=== PATIENT | female | born 1985 | race Caucasian/White ===

== ENCOUNTER 2025-04-27 09:52 | Inpatient (IN) | payer MEDICARE, OTHER ==
[~2025-04-27] VITALS: Ht 172.7 cm; Wt 68.0 kg
[2025-04-30 10:04] VITALS: BP 103/60
[2025-04-30 14:12] VITALS: BP 103/60
[2025-04-30] MEDS ORDERED: OXYCODONE/APAP 5-325 MG TABLET PO PRN (22:00)
[2025-04-30] MEDS ORDERED: METO-295 PO (22:51)
[2025-04-30] MEDS ORDERED: GABA100C PO (22:51)
[2025-04-30] MEDS ORDERED: HYDR1LIQ IV (22:51)
[2025-04-30] MEDS ORDERED: MELA10CA PO (22:51)
[2025-04-30] MEDS ORDERED: LAMO25TA16 GT (22:51)
[2025-04-30] MEDS ORDERED: CLON0.5T PO (22:51)
[2025-04-30] MEDS ORDERED: ASCO500C18 PO (22:51)
[2025-04-30] MEDS ORDERED: MIDO10TA PO (22:51)
[2025-04-30] MEDS ORDERED: DULO60CA45 PO (22:51)
[2025-04-30] MEDS ORDERED: DEXT50VI3 IV (22:51)
[2025-04-30] MEDS ORDERED: AMIT50TA17 GT (22:51)
[2025-04-30] MEDS ORDERED: AMIT50TA3 PO (22:51)
[2025-04-30] MEDS ORDERED: SUCR1TAB31 PO (22:51)
[2025-04-30] MEDS ORDERED: DEXT15LI44 PO (22:51)
[2025-04-30] MEDS ORDERED: AMYL1CAP56 PO (22:51)
[2025-04-30] MEDS ORDERED: FAMO20TA8 PO (22:51)
[2025-04-30] MEDS ORDERED: GLUC1VIA4 IM (22:51)
[2025-04-30] MEDS ORDERED: DULO30CA2 GT (22:51)
[2025-04-30] MEDS ORDERED: HYDR-4209 PO (22:51)
[2025-04-30] MEDS ORDERED: GLUCOSE ORAL GEL 15 GM TUBE PO PRN (23:00)
[2025-04-30] MEDS ORDERED: HYDROMORPHONE HCL 2 MG TABLET PO PRN (23:30)
[2025-04-30] MEDS ORDERED: INSULIN ASPART 1000 UNITS/10 ML VIAL(NOVOLOG) SQ SCH (23:30)
[2025-04-30] MEDS ORDERED: INSULIN LISPRO 300 UNIT/3 ML VIAL SQ SCH (23:30)
[2025-04-30] MEDS ORDERED: KETOROLAC TROMETHAMINE 30 MG INJ IM ONE (23:30)
[2025-04-30] MEDS ORDERED: INSULIN GLARGINE,HUM 300 UNITS/3 ML CARTRIDGE SQ SCH (23:30)
[2025-04-30 23:44] VITALS: BP 101/65; TEMP 98.8; O2SAT 97
[2025-05-01] MEDS: HYDROMORPHONE HCL 2 MG TABLET PO PRN (00:12)
[2025-05-01] MEDS: KETOROLAC TROMETHAMINE 30 MG INJ IM ONE (00:15)
[2025-05-01] MEDS: METOCLOPRAMIDE HCL 10 MG TABLET PO PRN (04:44)
[2025-05-01] MEDS ORDERED: DEXTROSE 50% 50 ML DISP.SYRIN IV PRN ×3 (05:00→12:30)
[2025-05-01] MEDS: BLOOD SUGAR DIAGNOSTIC 1 EACH STRIP VI SCH (05:08)
[2025-05-01] MEDS: INSULIN REGULAR, HUMAN 1000 UNIT/10 ML VIAL SQ PRN (05:09)
[2025-05-01 06:00] VITALS: BP 99/58; TEMP 98.7; O2SAT 95
[2025-05-01] MEDS ORDERED: BLOOD SUGAR DIAGNOSTIC 1 EACH STRIP VI SCH (07:30)
[2025-05-01 08:56] VITALS: BP 114/69; TEMP 98.7; O2SAT 97
[2025-05-01] MEDS ORDERED: ACET1TAB23 PO (09:32)
[2025-05-01] MEDS ORDERED: INSU100V11 SQ (10:00)
[2025-05-01] MEDS ORDERED: INSU100V7 SQ (10:01)
[2025-05-01] MEDS ORDERED: LAMO25TA5 PO (10:03)
[2025-05-01] MEDS ORDERED: ABAL1.56 SQ (10:05)
[2025-05-01] MEDS ORDERED: APIX5TAB PO (10:35)
[2025-05-01] MEDS ORDERED: TRAM50TA2 PO (10:38)
[2025-05-01] MEDS ORDERED: GLUCOSE ORAL GEL 15 GM TUBE PO PRN (12:30)
[2025-05-01] MEDS ORDERED: INSULIN ASPART 1000 UNITS/10 ML VIAL(NOVOLOG) SQ PRN (12:30)
[2025-05-01] MEDS ORDERED: ACETAMINOPHEN/CODEINE 300-30 MG TABLET PO PRN (12:30)
[2025-05-01] MEDS ORDERED: GLUCAGON,HUMAN RECOMBINANT 1 MG VIAL IM PRN (12:30)
[2025-05-01] MEDS: LOPERAMIDE HCL 2 MG CAPSULE PO PRN (12:34)
[2025-05-01] MEDS: TRAMADOL HCL 50 MG TABLET PO SCH (13:00)
[2025-05-01] MEDS ORDERED: METOCLOPRAMIDE HCL 10 MG TABLET PO SCH (13:00)
[2025-05-01] MEDS: MIDODRINE HCL 5 MG TABLET PO SCH (13:42)
[2025-05-01] MEDS: GABAPENTIN 100 MG CAPSULE PO SCH (13:43)
[2025-05-01] MEDS: LIPASE/PROTEASE/AMYLASE 4200 UNITS CAPSULE.DR PO SCH (14:15)
[2025-05-01 14:21] LABS: *BILIRUBIN,URIN NEGATIVE (NEGATIVE); *BLOOD, URINE 1+ (NEGATIVE); *CLARITY,URINE CLEAR (CLEAR); *COLOR,URINE YELLOW (YELLOW); *KETONES,URINE NEGATIVE (NEGATIVE); *PROTEIN,URINE NEGATIVE (NEGATIVE); *UROBILINOGEN,URINE 0.2 E.U./dl (NORMAL); LEUKOCYTE ESTERASE ,URINE 2+ (NEGATIVE); NITRITE, URINE NEGATIVE (NEGATIVE); UGLUCOSE TRACE (NEGATIVE)
[2025-05-01 14:23] LABS: *URINE HCG, QUAL NEGATIVE (NEGATIVE); SQUAMOUS EPITHELIAL CELL,UR FEW /HPF (NONE SEEN)
[2025-05-01 16:14] VITALS: BP 145/96; TEMP 98; O2SAT 98
[2025-05-01] MEDS: CLONAZEPAM 0.5 MG TABLET PO SCH (16:43)
[2025-05-01] MEDS: DULOXETINE 60 MG CAPSULE.DR PO SCH (16:44)
[2025-05-01] MEDS: SUCRALFATE 1 G TABLET PO SCH (16:45)
[2025-05-01 20:20] VITALS: BP 111/71; TEMP 98; O2SAT 95
[2025-05-01] MEDS: LAMOTRIGINE 25 MG TABLET PO SCH (21:02)
[2025-05-01] MEDS: AMITRIPTYLINE HCL 50 MG TABLET PO SCH (21:03)
[2025-05-01] MEDS: APIXABAN 5 MG TABLET PO SCH (21:06)
[2025-05-01] MEDS: INSULIN GLARGINE,HUM 300 UNITS/3 ML CARTRIDGE SQ SCH (21:26)
[2025-05-02 06:52] VITALS: BP 109/71; TEMP 98.2; O2SAT 96
[2025-05-02 08:00] VITALS: BP 127/85; TEMP 97.7; O2SAT 98
[2025-05-02] MEDS ORDERED: HOME MED MISCELLANEOUS SQ SCH (09:00)
[2025-05-02] MEDS: ASCORBIC ACID 500 MG TABLET PO SCH (09:11)
[2025-05-02] MEDS: FAMOTIDINE 20 MG TABLET PO SCH (09:11)
[2025-05-02 16:30] VITALS: BP 129/91; TEMP 98.1; O2SAT 99
[2025-05-02 19:42] VITALS: BP 108/73; TEMP 97.8; O2SAT 96
[2025-05-03 06:36] VITALS: BP 108/70; TEMP 98.2; O2SAT 97
[2025-05-03 07:59] LABS: PLATELET COUNT (AUTO) 382 K/uL (179-408); RED CELL DISTRIBUTION WIDTH 14.3 % (12.3-17.7); WHITE BLOOD COUNT (AUTO) 4.4 K/uL (3.8-11.8)
[2025-05-03 08:00] LABS: CREATININE 1.0 mg/dL (0.6-1.3); SODIUM SERUM 143.0 mmol/L (136-145); UREA NITROGEN, BLOOD 13.0 mg/dL (7-18)
[2025-05-03 08:04] VITALS: BP 102/70; TEMP 98; O2SAT 98
[2025-05-03 08:05] LABS: RED BLOOD CELL COUNT(AUTO) 2.43 MIL/uL (3.63-4.92)
[2025-05-03 09:54] VITALS: BP 107/74; TEMP 97.7; O2SAT 98
[2025-05-03 16:07] VITALS: BP 101/62; TEMP 97.7; O2SAT 97
[2025-05-03] MEDS: MELATONIN 3 MG TABLET PO SCH (20:37)
[2025-05-03 21:00] VITALS: BP 103/70; O2SAT 100
[2025-05-04] MEDS: GLUCOSE ORAL GEL 15 GM TUBE PO PRN (02:04)
[2025-05-04 06:57] VITALS: BP 113/76; O2SAT 97
[2025-05-04 07:29] VITALS: BP 121/81; TEMP 98.4; O2SAT 97
[2025-05-04 07:31] LABS: PLATELET COUNT (AUTO) 370 K/uL (179-408); RED CELL DISTRIBUTION WIDTH 14.3 % (12.3-17.7); WHITE BLOOD COUNT (AUTO) 5.6 K/uL (3.8-11.8)
[2025-05-04 07:41] LABS: RED BLOOD CELL COUNT(AUTO) 2.32 MIL/uL (3.63-4.92)
[2025-05-04 08:02] LABS: IRON, SERUM 35.0 ug/dL (50-175)
[2025-05-04 08:29] LABS: CREATININE 1.1 mg/dL (0.6-1.3); SODIUM SERUM 138.0 mmol/L (136-145); UREA NITROGEN, BLOOD 11.0 mg/dL (7-18)
[2025-05-04] MEDS: ARGININE/GLUTAMINE/CALCIUM BMB 1 EACH POWD.PACK PO SCH (08:50)
[2025-05-04 15:25] VITALS: BP_SYST 102; BP_DIAS 59; BP_DIAS 69; TEMP 97; O2SAT 97
[2025-05-04 20:00] VITALS: BP 137/93; TEMP 97.8
[2025-05-05 06:00] VITALS: BP 126/91; TEMP 97.1
[2025-05-05 07:57] LABS: PLATELET COUNT (AUTO) 413 K/uL (179-408); RED BLOOD CELL COUNT(AUTO) 2.68 MIL/uL (3.63-4.92); RED CELL DISTRIBUTION WIDTH 14.4 % (12.3-17.7); WHITE BLOOD COUNT (AUTO) 4.6 K/uL (3.8-11.8)
[2025-05-05 08:00] VITALS: BP 113/72; TEMP 97.8; O2SAT 96
[2025-05-05 08:04] LABS: CREATININE 0.9 mg/dL (0.6-1.3); SODIUM SERUM 140.0 mmol/L (136-145); UREA NITROGEN, BLOOD 12.0 mg/dL (7-18)
[2025-05-05 17:59] VITALS: BP 132/88; TEMP 97.8; O2SAT 99
[2025-05-05 20:00] VITALS: BP 111/54; TEMP 98; O2SAT 99
[2025-05-05] MEDS: SULFAMETH/TRIMETH 800/160 MG TABLET PO SCH (20:36)
[2025-05-06 06:00] VITALS: BP 108/75; TEMP 98.8; O2SAT 97
[2025-05-06 06:25] LABS: CREATININE 1.1 mg/dL (0.6-1.3); SODIUM SERUM 139.0 mmol/L (136-145); UREA NITROGEN, BLOOD 17.0 mg/dL (7-18)
[2025-05-06 07:29] LABS: PLATELET COUNT (AUTO) 348 K/uL (179-408); RED CELL DISTRIBUTION WIDTH 14.2 % (12.3-17.7); WHITE BLOOD COUNT (AUTO) 4.6 K/uL (3.8-11.8)
[2025-05-06 07:36] LABS: RED BLOOD CELL COUNT(AUTO) 2.39 MIL/uL (3.63-4.92)
[2025-05-06 15:00] VITALS: BP 123/71; TEMP 97.8; O2SAT 95
[2025-05-06 16:00] VITALS: BP 108/76; TEMP 97.9; O2SAT 99
[2025-05-06 20:05] VITALS: BP 105/63; TEMP 98.2; O2SAT 100
[2025-05-07 04:19] VITALS: BP 136/89; TEMP 98.9; O2SAT 98
[2025-05-07 08:00] VITALS: BP 118/73; TEMP 98.8; O2SAT 98
[2025-05-07 10:11] LABS: PLATELET COUNT (AUTO) 425 K/uL (179-408); RED BLOOD CELL COUNT(AUTO) 2.65 MIL/uL (3.63-4.92); RED CELL DISTRIBUTION WIDTH 14.7 % (12.3-17.7); WHITE BLOOD COUNT (AUTO) 6.6 K/uL (3.8-11.8)
[2025-05-07 16:33] VITALS: BP 105/73; TEMP 98.2; O2SAT 98
[2025-05-07 20:00] VITALS: BP 102/66; TEMP 97.8; O2SAT 98
[2025-05-08 05:10] VITALS: BP 98/62; TEMP 98; O2SAT 91
[2025-05-08 09:04] VITALS: BP 81/51
== END 2025-05-08 11:15 | disposition home health service (06) | DRG 949 ==
PROVIDERS: ADMIT Physical Medicine & Rehabilitation Pain Medicine; ATTEND Physical Medicine & Rehabilitation Pain Medicine
PROC: 05HB33Z Insertion of Infusion Device into Right Basilic Vein, Percutaneous Approach (ICD-10-PCS; principal; 2025-05-05)
DX: T84.7XXD Infection and inflammatory reaction due to other internal orthopedic prosthetic devices, implants and grafts, subsequent encounter (principal); L03.115 Cellulitis of right lower limb; N39.0 Urinary tract infection, site not specified; D64.9 Anemia, unspecified; E10.43 Type 1 diabetes mellitus with diabetic autonomic (poly)neuropathy; F31.9 Bipolar disorder, unspecified; F41.9 Anxiety disorder, unspecified; I10 Essential (primary) hypertension; K21.9 Gastro-esophageal reflux disease without esophagitis; M81.0 Age-related osteoporosis without current pathological fracture; Q66.11 Congenital talipes calcaneovarus, right foot; K31.84 Gastroparesis; Z79.4 Long term (current) use of insulin; Z82.49 Family history of ischemic heart disease and other diseases of the circulatory system; Z88.5 Allergy status to narcotic agent; Z88.8 Allergy status to other drugs, medicaments and biological substances; Z93.1 Gastrostomy status; Y83.8 Other surgical procedures as the cause of abnormal reaction of the patient, or of later complication, without mention of misadventure at the time of the procedure
CPT/HCPCS: 36415; 83550; 83735; 84100; 84703; 85025; 86850; 86900; 86901; 87077; 87086; 97535-GO-CO; A4663; A9150; J1815; J8597